=== PATIENT | female | born 1995 | race Caucasian/White ===

== ENCOUNTER 2022-04-20 21:47 | Emergency (ER) | payer OTHER ==
[~2022-04-20] VITALS: Ht 162.6 cm; Wt 70.6 kg
[2022-04-20 23:10] VITALS: BP 120/72
[2022-04-20] MEDS ORDERED: ACET1CAP14 PO (23:55)
[2022-04-20] MEDS ORDERED: DICL1GEL50 TD (23:55)
== END 2022-04-21 00:23 | disposition home or self-care (01) ==
LOC: ER 21:51
DX: S70.01XA Contusion of right hip, initial encounter (principal); S00.83XA Contusion of other part of head, initial encounter; W18.2XXA Fall in (into) shower or empty bathtub, initial encounter; Y93.89 Activity, other specified; Y92.89 Other specified places as the place of occurrence of the external cause; Y99.8 Other external cause status